=== PATIENT | male | born 1985 | race Caucasian/White ===

== ENCOUNTER 2019-04-26 09:03 | Emergency (ER) | payer OTHER ==
[~2019-04-26] VITALS: Ht 190.5 cm; Wt 93.0 kg
[2019-04-26] MEDS ORDERED: CEPH500 PO (09:18)
[2019-04-26] MEDS ORDERED: Monodox100 MG PO (09:48)
[2019-04-26] MEDS ORDERED: HYDR1TAB94 PO (09:48)
== END 2019-04-26 09:56 | disposition home or self-care (01) ==
LOC: ER 09:03
DX: L03.115 Cellulitis of right lower limb (principal); Z87.891 Personal history of nicotine dependence
CPT/HCPCS: 99283